=== PATIENT | female | born 1960 | race Caucasian/White ===

== ENCOUNTER 2019-09-13 07:31 | Emergency (ER) | payer BC ==
[~2019-09-13] VITALS: Ht 172.7 cm; Wt 91.8 kg
[2019-09-13 07:36] VITALS: Ht 172.7 cm; Wt 91.8 kg
[2019-09-13] MEDS ORDERED: MOBIC7.5 MG PO (07:37)
[2019-09-13 08:38] VITALS: BP 148/84
[2019-09-17] MEDS ORDERED: NEXIUM20 MG PO (08:00)
[2019-09-17] MEDS ORDERED: ZYRTEC10 MG PO (08:00)
== END 2019-09-13 09:11 | disposition home or self-care (01) ==
LOC: D.ER 07:31
DX: M25.562 Pain in left knee (principal); M25.462 Effusion, left knee; M23.92 Unspecified internal derangement of left knee

== ENCOUNTER → 2019-09-13 09:26 | Outpatient (CLI) | payer BC ==
[2019-09-13 07:36] VITALS: BMI 30.7
[~2019-09-13 09:26] MED LIST: MOBIC7.5 MG PO; NEXIUM20 MG PO; ZYRTEC10 MG PO
== END | disposition home or self-care (01) ==
LOC: D.MRI 09:26
PROVIDERS: ATTEND Orthopaedic Surgery
DX: M23.332 Other meniscus derangements, other medial meniscus, left knee (principal)

== ENCOUNTER 2019-09-18 06:07 | Day surgery (SDC) | payer BC ==
[2019-09-17 13:48] LABS: HEMATOCRIT 39.7 % (36.0-48.0); HEMOGLOBIN 13.7 g/dL (12-16); MCH 33.2 pg (26.0-34.0); MCHC 34.5 g/dL (31.0-37.0); MCV 96.1 fL (80.0-100.0); MEAN PLATELET VOLUME 9.2 fL (7.4-10.4); RBC 4.13 10x6/uL (4.00-5.40); WBC 6.3 10x3/uL (4.8-10.8)
[~2019-09-18] VITALS: Ht 172.7 cm; Wt 91.6 kg
[2019-09-18 06:52] VITALS: BP 148/78; Ht 172.7 cm; Wt 91.6 kg
[2019-09-18] MEDS ORDERED: PERCOCET 5-3251 TAB PO (09:11)
[2019-09-18] MEDS ORDERED: TORADOL10 MG PO (09:13)
--- NOTE | 2019-09-18 13:38 | OP ---
PATIENT NAME: JESS ASCENCIO MEDICAL RECORD: [id number] :62 LOCATION:[facility] ADMISSION DATE: SURGEON: JAIRO BALDWIN DO DATE OF OPERATION: 09/18/2019 PROCEDURE PERFORMED: Left knee arthroscopy with partial medial meniscectomy and lateral release. 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 INDICATIONS: Ms. Ascencio is a 59-year-old female who has had left knee pain for quite some time. We tried nonoperative treatment, but she woke up one morning and could not bear weight on her legs due to the pain. This came suddenly, we got an MRI, which showed the above findings. I told her we would again look around and fix anything I could and she is aware of that, aware of the risks of infection, bleeding, continued pain, retear of the meniscus, need for further surgery, blood clots, and even . She signed the consent. SURGEON: Jairo Baldwin DO DESCRIPTION OF PROCEDURE: The patient was taken to the operative suite, laid in supine position, given general anesthetic, the patient was sedated, and an LMA was placed. She was given 2 grams of Ancef preoperatively. The left lower extremity was then prepped and draped in sterile fashion. Timeout was performed. Everyone was in agreeance with the correct side, site, patient and procedure. I then began by establishing a lateral portal with 11-blade scalpel. Trocar was then entered in the knee. Suprapatellar pouch was inspected. No loose body was seen in it. Grade III chondromalacia was noted on the medial and lateral facets of the patella. The patella was extremely lateral riding and tilted laterally. I then inspected the lateral medial gutters, no loose bodies in it, then into the medial compartment and established a medial portal with an 18-inch spinal needle and 11-blade scalpel. We then noted a grade II chondromalacia of the medial femoral condyle and a large posterior horn tear of the medial meniscus. A shaver and biter were brought in to trim out the tear back to a stable point and then also did an abrasion chondroplasty on medial femoral condyle. ACL checked out to be in good position, it was not torn. The lateral compartment was then entered. The cartilage was in good shape and did not note any tears in the lateral meniscus. The scope was then switched to the medial portal for viewing and the burner was brought in from the lateral portal and lateral release was performed. This had a very nice effect on the patellas and moved it over more to the trochlea and was more minimal motion. We then turned off the water and turned on the suction. Excess fluid was removed out of the knee. The incisions were then closed by Geovani Venegas, certified registered locksmith with 4-0 Monocryl in an inverted interrupted fashion, dressed with Steri-Strips, Adaptic, 4 x 4's, ABD, Webril, Hao wrap and a MANISH hose stocking up to the knee. She was then awakened and taken to recovery in stable condition. ESTIMATED BLOOD LOSS: Minimal. OPERATIVE REPORT [id number] JESS ASCENCIO COMPLICATIONS: None. TRANSINT:[id number] Voice Confirmation ID: [id number] DOCUMENT ID: [id number] JAIRO BALDWIN DO at 1338 CC: [id number] DICTATION DATE: 09/18/19911 ASSISTANT PROFESSOR IN FAMILY STUDIES: 09/18/19 1305 [address] [facility] [address] [place] [address]
--- NOTE | 2019-09-18 13:45 | NUR ---
1305 MEDICATED FOR PAIN AND ZOFRAN RX CALLED INTO PHARMACY PER DR BAE ORDERS. 1315 IV REMOVED AND ASSISTED WITH GETTING DRESSED.
== END 2019-09-18 13:40 | disposition home or self-care (01) ==
LOC: D.OPS 06:07
PROVIDERS: Anesthesiology; ATTEND Orthopaedic Surgery
DX: S83.242A Other tear of medial meniscus, current injury, left knee, initial encounter (principal); X58.XXXA Exposure to other specified factors, initial encounter; M22.42 Chondromalacia patellae, left knee; T79.5XXA Traumatic anuria, initial encounter; M25.562 Pain in left knee